=== PATIENT | female | born 1985 | race Two or more races ===

== ENCOUNTER 2017-12-14 16:42 | Observation (INO) | payer MEDICAID | END 2017-12-14 18:55 | disposition home or self-care (01) | LOC: L&D 16:42 | PROVIDERS: ADMIT Obstetrics & Gynecology; ATTEND Obstetrics & Gynecology | DX: O62.9 Abnormality of forces of labor, unspecified (principal); Z3A.38 38 weeks gestation of pregnancy | CPT/HCPCS: 99281; G0378 ==

== ENCOUNTER 2018-06-17 02:02 | Emergency (ER) | payer MEDICAID, OTHER ==
[~2018-06-17] VITALS: Ht 160 cm; Wt 75.0 kg
[2018-06-17 02:15] VITALS: BP 114/64
== END 2018-06-17 04:36 | disposition left against medical advice (07) ==
LOC: ER 02:45
DX: Z53.21 Procedure and treatment not carried out due to patient leaving prior to being seen by health care provider (principal); F17.200 Nicotine dependence, unspecified, uncomplicated

== ENCOUNTER 2021-07-11 02:01 | Emergency (ER) | payer OTHER ==
[~2021-07-11] VITALS: Ht 160 cm; Wt 71.0 kg
[2021-07-11 02:05] VITALS: BP 133/82
[2021-07-11] MEDS ORDERED: AMOX-424 MT (02:14)
[2021-07-11] MEDS ORDERED: TOPUD MT (02:17)
[2021-07-11] MEDS ORDERED: ACETAMINOPHEN 325MG TABLET PO ONE (02:30)
[2021-07-11] MEDS ORDERED: AMOXICILLIN/POTASSIUM CLAVULANATE 875/125MG TAB PO ONE (02:30)
== END 2021-07-11 02:18 | disposition home or self-care (01) ==
LOC: ER 02:01
DX: K04.7 Periapical abscess without sinus (principal); K02.9 Dental caries, unspecified; G89.18 Other acute postprocedural pain; Z98.890 Other specified postprocedural states
CPT/HCPCS: 99283

== ENCOUNTER 2021-07-11 17:33 | Emergency (ER) | payer OTHER ==
[~2021-07-11] VITALS: Ht 160 cm; Wt 70.0 kg
[~2021-07-11 17:33] MED LIST: AMOX-424 MT; TOPUD MT
[2021-07-11 17:39] VITALS: BP 115/79
== END 2021-07-11 20:30 | disposition left against medical advice (07) ==
LOC: ER 17:33
DX: Z53.21 Procedure and treatment not carried out due to patient leaving prior to being seen by health care provider (principal); Z98.890 Other specified postprocedural states

== ENCOUNTER 2023-10-10 07:19 | Emergency (ER) | payer MEDICAID, OTHER ==
[~2023-10-10] VITALS: Ht 172.7 cm; Wt 71.0 kg
[2023-10-10 07:20] VITALS: BP 142/73; PULSE 95; RESP 18; TEMP 98.3; O2SAT 98
== END 2023-10-10 07:45 | disposition left against medical advice (07) ==
LOC: ER 07:35
DX: K08.89 Other specified disorders of teeth and supporting structures (principal); Z53.21 Procedure and treatment not carried out due to patient leaving prior to being seen by health care provider

== ENCOUNTER 2023-10-18 20:05 | Emergency (ER) | payer MEDICAID ==
[~2023-10-18] VITALS: Ht 160 cm; Wt 73.0 kg
[2023-10-18 20:24] VITALS: BP 118/77; PULSE 88; RESP 14; TEMP 98.2; O2SAT 99
[2023-10-18] MEDS ORDERED: KETOROLAC 30MG/ML VIAL IM STA (21:04)
[2023-10-18] MEDS ORDERED: ONDANSETRON HCL 4MG/2ML INJ IM STA (21:04)
[2023-10-18] MEDS ORDERED: AMOXICILLIN/POTASSIUM CLAVULANATE 875/125MG TAB PO ONE (21:15)
[2023-10-18] MEDS ORDERED: IBUP-2029 PO (21:21)
[2023-10-18] MEDS ORDERED: AMOX1TAB16 MT (21:21)
[2023-10-19] MEDS ORDERED: AMOX1TAB16 MT (08:34)
[2023-10-19] MEDS ORDERED: IBUP-2030 MT (08:34)
[2023-10-19] MEDS ORDERED: ACET-2708 MT (08:34)
== END 2023-10-18 21:56 | disposition left against medical advice (07) ==
LOC: ER 20:05
DX: K02.9 Dental caries, unspecified (principal); R51.9 Headache, unspecified
CPT/HCPCS: 99283; J1885; J2405

== ENCOUNTER 2023-10-19 06:10 | Emergency (ER) | payer MEDICAID ==
[~2023-10-19] VITALS: Ht 160 cm; Wt 74.0 kg
[~2023-10-19 06:10] MED LIST changes: +AMOX1TAB16 MT; +IBUP-2029 PO
[2023-10-19 06:23] VITALS: O2SAT 96
[2023-10-19] MEDS ORDERED: ACET-2708 MT (08:34)
[2023-10-19] MEDS ORDERED: AMOX1TAB16 MT (08:34)
[2023-10-19] MEDS ORDERED: IBUP-2030 MT (08:34)
[2023-10-19 08:56] VITALS: BP 128/74; PULSE 68; RESP 16; TEMP 98.3
[2023-10-19] MEDS: IBUPROFEN 800MG TABLET PO ONE (09:01)
== END 2023-10-19 09:02 | disposition home or self-care (01) ==
LOC: ER 06:10
DX: K04.7 Periapical abscess without sinus (principal); Z98.890 Other specified postprocedural states
CPT/HCPCS: 99283

== ENCOUNTER 2023-11-12 20:39 | Emergency (ER) | payer MEDICAID ==
[~2023-11-12] VITALS: Ht 160 cm; Wt 72.6 kg
[~2023-11-12 20:39] MED LIST changes: +ACET-2708 MT; +IBUP-2030 MT
[2023-11-12 20:41] VITALS: BP 113/73; PULSE 104; RESP 18; TEMP 98.5; O2SAT 100
== END 2023-11-13 00:30 | disposition left against medical advice (07) ==
LOC: ER 20:39
DX: R51.9 Headache, unspecified (principal); Z53.21 Procedure and treatment not carried out due to patient leaving prior to being seen by health care provider
CPT/HCPCS: 99283